=== PATIENT | male | born 1975 | race Caucasian/White ===

== ENCOUNTER 2020-02-02 18:00 | Outpatient (RCR) | payer OTHER, SELFPAY | END 2020-02-10 23:55 | disposition home or self-care (01) | LOC: HO.PAOS 18:00 | PROVIDERS: Visit Provider Counselor Mental Health | DX: F41.0 Panic disorder [episodic paroxysmal anxiety] (principal); F32.9 Major depressive disorder, single episode, unspecified | CPT/HCPCS: 90834 ==

== ENCOUNTER → 2022-05-22 14:19 | Outpatient (BNVA) | payer OTHER, SELFPAY | PROVIDERS: Visit Provider Psychiatry & Neurology Psychiatry | DX: Z13.89 Encounter for screening for other disorder (principal) ==

== ENCOUNTER → 2022-08-12 16:17 | Outpatient (BNVA) | payer OTHER, SELFPAY | PROVIDERS: Visit Provider Psychiatry & Neurology Psychiatry ==

== ENCOUNTER → 2022-10-28 17:29 | Outpatient (BNVA) | payer OTHER, SELFPAY | PROVIDERS: Visit Provider Psychiatry & Neurology Psychiatry ==

== ENCOUNTER → 2023-03-27 15:03 | Outpatient (BNVA) | payer OTHER, SELFPAY | PROVIDERS: Visit Provider Psychiatry & Neurology Psychiatry ==

== ENCOUNTER 2023-07-15 11:48 | Outpatient (AMB) | payer OTHER, SELFPAY ==
--- NOTE | 2023-07-15 11:17 | MHC.OFFVISPS ---
Intake Intake Visit Reasons: depression Allergies amoxicillin Allergy (Intermediate, Verified 01/21/22 10:45) Rash Medication List - Last Reconciled 07/15/23 by Jorden Grimes MD alprazolam 0.5 mg PO QID PRN buspirone 22.5 mg (1.5 x 15 mg) PO BID 30 days mirtazapine 45 mg PO BEDTIME 30 days sertraline 100 mg PO BID HPI- Psychiatric Chief Complaint: depression HPI Narrative: Pt seen in f/u with his mood has been more depressed more anxious and ruminating. Thinking about the of his father difficulties that he has had in the last 10 20 years and has had more ruminating limited sent in panic attacks and agoraphobia symptoms. His manages most household there appears to be some level guilt and rumination. Denies drinking denies abuse of alprazolam has been on mirtazapine and sertraline BuSpar 15 mg twice a day for augmentation he has not been being seen in psychotherapy and up until now has been seeing he has been doing quite well has been working for [employer] and this appears to be working out well Past Psychiatric History: Past history of significant depressive symptoms and agoraphobia symptoms in the past that were disabling Mental Status Exam Mental Status Exam Narrative: Mental Status Exam Narrative: Appearance: Casually dressed Behavior: Cooperative appropriate psychomotor: Within normal limits Speech: Normal volume and prosody Thought proccess logical ruminating Thought content: self esteem issuses issues related to his family and stress especially with his children were having difficulty also concerned regarding more anxiety Mood: Anxious and dysphoric Affect: Constricted SI:denies HI:denies VH/AH:none Delusions: None Insight/judgment: fair insight and judgment Memory/cog: Intact Telehealth Telehealth Location of provider rendering services: practice address Location of patient: address on file Patient Identification confirmed using: Name, : Yes Telehealth method: video Patient verbally consented to treatment: Yes Patient verbally consented to billing insurance company: Yes Minutes spent on Phone/Video with Pt.: 25 Assessment and Plan Assessment & Plan (1) Major depressive disorder, recurrent, moderate: Status: Acute Code(s): F33.1 - Major depressive disorder, recurrent, moderate (2) Panic disorder with agoraphobia: Status: Acute Code(s): F40.01 - Agoraphobia with panic disorder Plan Pt seen in f/u has been more anxious and depressed ruminating internally preoccupied clearly overwhelmed with multiple ongoing stressors including his own difficulties at times work family difficulties and dealing with his mother who has severe anxiety particularly after the of his father increase BuSpar to 22.5 mg twice a day strongly urged psychotherapy using his for support but not as a main psychotherapist no SI Medications: Changed From buspirone 15 mg (2 x 7.5 mg) PO BID 120 tabs 2RF To buspirone 22.5 mg (1.5 x 15 mg) PO BID 90 tabs 2RF 30 days Refilled sertraline 100 mg PO BID 60 tabs 3RF mirtazapine 45 mg PO BEDTIME 30 tabs 2RF 30 days Counseling and coordination of Care Diagnosis and Prognosis Counseling: Impact of diagnosis on life functions, Problematic behaviors secondary to diagnosis and Adequacy of current interventions Details: I spent [30] minutes reviewing the record, seeing the patient and documenting in the medical record. Counseling provided to the patient/caregiver as outlined below. Addressed patient/caregiver concerns regarding current medication regime including effective adherence. Addressed patient/caregiver concerns regarding diagnosis and prognosis including accuracy of diagnosis, prognosis over time, impact of diagnosis. Addressed patient/caregiver concerns regarding impact of recent stressors. 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 There is a family history of depression and anxiety Substance History: None noted Trauma History: na Coding Level of Care Code Tele Est Pt Level 4 (18986) Diagnoses Major depressive disorder, recurrent, moderate F33.1 Panic disorder with agoraphobia F40.01
== END 2023-07-15 16:03 | disposition home or self-care (01) ==
LOC: HO.HOP 11:48
PROVIDERS: Visit Provider Psychiatry & Neurology Psychiatry
DX: F33.1 Major depressive disorder, recurrent, moderate (principal); F40.01 Agoraphobia with panic disorder
CPT/HCPCS: 99214

== ENCOUNTER → 2023-07-15 11:48 | Outpatient (BNVA) | payer OTHER, SELFPAY | PROVIDERS: Visit Provider Psychiatry & Neurology Psychiatry ==

== ENCOUNTER 2023-09-02 14:30 | Outpatient (AMB) | payer BC, SELFPAY ==
--- NOTE | 2023-09-02 13:18 | MHC.OFFVISPS ---
Intake Intake Visit Reasons: Depression Allergies amoxicillin Allergy (Intermediate, Verified 01/21/22 10:45) Rash Medication List - Last Reconciled 09/02/23 by Jorden Grimes MD alprazolam 0.5 mg PO QID PRN buspirone 22.5 mg (1.5 x 15 mg) PO BID 30 days mirtazapine 45 mg PO BEDTIME 30 days sertraline 100 mg PO BID HPI- Psychiatric Chief Complaint: Depression HPI Narrative: Patient seen psychiatric follow-up with his . Patient seen telehealth needing he is somewhat demoralized and depressed understands he needs to work through multiple losses and stressors that he has had over the years and also issues related to the kids who are having problems in school which he would times blames on himself. Mood generally okay the patient his have been agreeable to seeking counseling mood generally stable on mirtazapine sertraline BuSpar he has challenging his agoraphobia type symptoms which include elevators Past Psychiatric History: Past history of significant depressive symptoms and agoraphobia symptoms in the past that were disabling Mental Status Exam Mental Status Exam Narrative: Mental Status Exam Narrative: Appearance: Casually dressed Behavior: Cooperative appropriate psychomotor: Within normal limits Speech: Normal volume and prosody Thought proccess logical ruminating Thought content: self esteem issuses depressive ruminations continue but future oriented Mood: Anxious and dysphoric Affect: Constricted SI:denies HI:denies VH/AH:none Delusions: None Insight/judgment: fair insight and judgment Memory/cog: Intact Telehealth Telehealth Telehealth Platform: Other (please specify) (doxy) Location of provider rendering services: practice address Location of patient: address on file Patient Identification confirmed using: Name, : Yes Telehealth method: video Patient verbally consented to treatment: Yes Patient verbally consented to billing insurance company: Yes Minutes spent on Phone/Video with Pt.: 24 Assessment and Plan Assessment & Plan (1) Major depressive disorder, recurrent, moderate: Status: Acute Code(s): F33.1 - Major depressive disorder, recurrent, moderate (2) Panic disorder with agoraphobia: Status: Acute Code(s): F40.01 - Agoraphobia with panic disorder Plan Continue mirtazapine BuSpar and sertraline patient would benefit from regular exercise healthy eating habits behavioral activation regular psychotherapy L methyl folate consideration BuSpar 22.5 b.i.d. mirtazapine 45 mg daily sertraline 200 mg daily Counseling and coordination of Care Pt. Self Management counseling: Breathing, Exercise, Behavior activation, Exposure and Organization skills and time management Medication management counseling: Effectiveness, Side effects and Dosing range Diagnosis and Prognosis Counseling: Adequacy of current interventions Details: I spent [29] minutes reviewing the record, seeing the patient and documenting in the medical record. Counseling provided to the patient/caregiver as outlined below. Addressed patient/caregiver concerns regarding current medication regime including effective adherence. Addressed patient/caregiver concerns regarding diagnosis and prognosis including accuracy of diagnosis, prognosis over time, impact of diagnosis. Addressed patient/caregiver concerns regarding impact of recent stressors. 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 There is a family history of depression and anxiety Substance History: None noted Trauma History: na Coding Level of Care Code Tele Est Pt Level 4 (04914) Diagnoses Major depressive disorder, recurrent, moderate F33.1 Panic disorder with agoraphobia F40.01
== END 2023-09-02 14:34 | disposition home or self-care (01) ==
LOC: HO.HOP 14:30
PROVIDERS: PCP Nurse Practitioner Primary Care; Visit Provider Psychiatry & Neurology Psychiatry
DX: F33.1 Major depressive disorder, recurrent, moderate (principal); F40.01 Agoraphobia with panic disorder
CPT/HCPCS: 99214

== ENCOUNTER → 2023-09-02 14:30 | Outpatient (BNVA) | payer BC, SELFPAY | PROVIDERS: PCP Nurse Practitioner Primary Care; Visit Provider Psychiatry & Neurology Psychiatry ==

== ENCOUNTER 2023-11-13 15:04 | Outpatient (AMB) | payer BC, SELFPAY ==
--- NOTE | 2023-11-13 16:55 | A.OFFPSYCH_ITS ---
Intake Intake Visit Reasons: Depression Allergies amoxicillin Allergy (Intermediate, Verified 01/21/22 10:45) Rash Medication List - Last Reconciled 11/13/23 by Jorden Grimes MD alprazolam 0.5 mg PO QID PRN buspirone 22.5 mg (1.5 x 15 mg) PO BID mirtazapine 45 mg PO BEDTIME 30 days sertraline 100 mg PO BID HPI- Psychiatric Chief Complaint: Depression HPI Narrative: Patient seen psychiatric follow-up patient's PHQ-9 in GED shown significant improvement. Patient's feeling significantly better now has a full-time job at the [employer] which has been quite reassuring to him. He has been trying to very gradually go down on alprazolam and we have discussed issues related to dependence withdrawal and benefit in trying to lower the doses of alprazolam over time which has been used regarding his panic disorder and agoraphobia in addition to sertraline mirtazapine and BuSpar. Past Psychiatric History: Past history of significant depressive symptoms and agoraphobia symptoms in the past that were disabling Mental Status Exam Mental Status Exam Narrative: Mental Status Exam Narrative: Appearance: Casually dressed Behavior: Cooperative appropriate psychomotor: Within normal limits Speech: Normal volume and prosody Thought proccess logical and goal-directed Thought content: Future oriented no self-harming thoughts Mood: Euthymic Affect: Appropriate to mood full affect SI:denies HI:denies VH/AH:none Delusions: None Insight/judgment: Good insight and judgment TRYING TO EAT BETTER AND GETTING REGULAR EXERCISE Memory/cog: Intact Assessment and Plan Assessment & Plan (1) Major depressive disorder, recurrent, moderate: Status: Acute Code(s): F33.1 - Major depressive disorder, recurrent, moderate (2) Panic disorder with agoraphobia: Status: Acute Code(s): F40.01 - Agoraphobia with panic disorder (3) Generalized anxiety disorder: Status: Acute Code(s): F41.1 - Generalized anxiety disorder Plan ENCOURAGE LOWERING ALPRAZOLAM BY HALF TABLET A MONTH. Discussed benefits of gradually lowering less tolerance may be more effective when needed p.r.n.. Patient has had longstanding panic and agoraphobia he will be seeing a therapist again in the past he did have behavioral management also recommended anxiety student success coach thought calm discussed relaxation breathing. Continue sertraline mirtazapine BuSpar. No evidence of elevated serotonin. Has not had labs were seen PCP for extended period of time will get some baseline labs Orders: Orders TSH reflex Free T4 11/13/23 F40.01 - Agoraphobia with panic disorder, Z82.49 - Family history of ischemic heart disease and other diseases of the circulatory system, F33.42 - Major depressive disorder, recurrent, in full remission Comprehensive Elaine. Panel Fast 11/13/23 F40.01 - Agoraphobia with panic disorder, Z82.49 - Family history of ischemic heart disease and other diseases of the circulatory system, F33.42 - Major depressive disorder, recurrent, in full remission Vitamin B12 and Folate 11/13/23 F40.01 - Agoraphobia with panic disorder, Z82.49 - Family history of ischemic heart disease and other diseases of the circulatory system, F33.42 - Major depressive disorder, recurrent, in full remission Complete Blood Count Auto Diff 11/13/23 F40.01 - Agoraphobia with panic disorder, Z82.49 - Family history of ischemic heart disease and other diseases of the circulatory system, F33.42 - Major depressive disorder, recurrent, in full remission Lipid Panel with Reflex 11/13/23 F40.01 - Agoraphobia with panic disorder, Z82.49 - Family history of ischemic heart disease and other diseases of the circulatory system, F33.42 - Major depressive disorder, recurrent, in full remission Counseling and coordination of Care Pt. Self Management counseling: Self-help workbook, Breathing, Mod caffeine/ETOH intake, Behavior activation, Cognitive restructuring and Exposure Medication management counseling: Effectiveness, Side effects and Dosing range Diagnosis and Prognosis Counseling: Problematic behaviors secondary to diagnosis and Adequacy of current interventions Details: I spent [30] minutes reviewing the record, seeing the patient and documenting in the medical record. Counseling provided to the patient/caregiver as outlined below. Addressed clementina ent/caregiver concerns regarding current medication regime including effective adherence. Addressed patient/caregiver concerns regarding diagnosis and prognosis including accuracy of diagnosis, prognosis over time, impact of diagnosis. Addressed patient/caregiver concerns regarding impact of recent stressors. 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 There is a family history of depression and anxiety Substance History: None noted Trauma History: na Coding Level of Care Code Est Pt Level 4 (44819) Diagnoses Major depressive disorder, recurrent, moderate F33.1 Panic disorder with agoraphobia F40.01 Generalized anxiety disorder F41.1
== END 2023-11-13 15:55 | disposition home or self-care (01) ==
LOC: HO.HOP 15:04
PROVIDERS: PCP Family Medicine; Visit Provider Psychiatry & Neurology Psychiatry
DX: F33.1 Major depressive disorder, recurrent, moderate (principal); F40.01 Agoraphobia with panic disorder; F41.1 Generalized anxiety disorder
CPT/HCPCS: 99214

== ENCOUNTER → 2023-11-13 15:04 | Outpatient (BNVA) | payer BC, SELFPAY | PROVIDERS: PCP Family Medicine; Visit Provider Psychiatry & Neurology Psychiatry ==

== ENCOUNTER 2023-12-26 06:53 | Outpatient (REF) | payer BC, SELFPAY ==
[2023-12-26 07:15] LABS: MANUAL DIFF FLAG NO
[2023-12-26 07:52] LABS: Basophils Absolute Auto 0.1 X10*3/uL (0.0-0.2); Basophils Percent Auto 0.6 % (0-2); Eosinophils Absolute Auto 0.2 X10*3/uL (0.0-0.4); Eosinophils Percent Auto 1.8 % (0-4); Hematocrit 47.1 % (42.0-52.0); Hemoglobin 16.7 g/dl (14.0-18.0); Imm Gran Abs Auto 0.06 X10*3/uL (0.00-0.03); Imm Gran Pct Auto 0.7 % (0.0-0.4); Lymphocytes Absolute Auto 2.3 X10*3/uL (1.2-4.9); Mean Corpuscular HGB Conc 35.5 g/dl (31.0-36.0); Mean Corpuscular Volume 84.7 fL (80.0-98.0); Mean Platelet Volume 9.6 fL (9.4-12.4); Monocytes Absolute Auto 0.7 X10*3/uL (0.1-1.2); Monocytes Percent Auto 7.6 % (2-11); Neutrophils Absolute Auto 5.6 x10*3/uL (2.0-8.3); Neutrophils Percent Auto 63.3 % (45-73); Platelet Count 306 X10*3/uL (160-400); Red Blood Count 5.56 X10*6/uL (4.60-5.80); Red Cell Distribution Width 13.4 % (11.0-16.0); White Blood Count 8.8 X10*3/uL (4.8-10.8)
[2023-12-26 08:30] LABS: Alanine Aminotransferase 51 U/L (0-40); Albumin Level 4.8 g/dL (3.5-5.0); Alkaline Phosphatase 71 U/L (39-117); Anion Gap 14 (12-20); Aspartate Amino Transferase 129 U/L (5-37); Bilirubin Total 0.8 mg/dL (0.0-1.0); Blood Urea Nitrogen 13 mg/dL (9-16); Calcium 9.4 mg/dL (8.4-10.2); Carbon Dioxide 25 mmol/L (22-29); Chloride 108 mmol/L (96-108); Cholesterol 147 mg/dL (<200); Estimated Glomerular Filt Rate > 60; Glucose Fasting 149 mg/dL (60-99); HDL Cholesterol 39 mg/dL (>40); LDL Cholesterol Calculated 38 mg/dL (<100); Potassium 4.1 mmol/L (3.3-5.1); Sodium 143 mmol/L (135-145); Total Protein 7.9 g/dL (6.5-8.0); Triglycerides 353 mg/dL (<150)
[2023-12-26 08:33] LABS: TSH reflex Free T4 2.01 uIU/mL (0.32-4.0)
[2023-12-26 08:51] LABS: Folate 9.5 ng/mL (> or = 4.0); Vitamin B12 483 pg/mL (200-900)
[2023-12-26 09:41] LABS: Reflex LDLD? No
--- NOTE | 2023-12-26 17:40 | PM.EVENT ---
Event Note Date of Service: 12/26/23 Event Note: DISCUSSED WITH PATIENT RESULTS OF RECENT LAB TESTS These include elevated triglycerides over the elevated liver function tests and elevated blood sugar in the 140s will get repeat labs in the morning copies to patient's primary care doctor strongly urged him to see primary care for further evaluation and treatment Hepatitis screen ordered hemoglobin A1c results to PCP Time Spent With Patient Time: Total time managing care of this patient today ____ minutes.
== END 2023-12-26 06:54 | disposition home or self-care (01) ==
LOC: HO.LAB 06:53
PROVIDERS: Visit Provider Psychiatry & Neurology Psychiatry
DX: F40.01 Agoraphobia with panic disorder (principal); Z82.49 Family history of ischemic heart disease and other diseases of the circulatory system; F33.42 Major depressive disorder, recurrent, in full remission
CPT/HCPCS: 36415; 80053; 80061; 82607; 82746; 84443; 85025

== ENCOUNTER 2023-12-27 06:59 | Outpatient (REF) | payer BC, SELFPAY ==
[2023-12-27 08:01] LABS: Estimated Average Glucose 88 mg/dL; Hemoglobin A1C 109.4579 umol/L; Hemoglobin A1c % 4.7 % (<6.0); Total Hemoglobin (HGBA1C) 3926.9527 umol/L
[2023-12-27 08:14] LABS: Alanine Aminotransferase 57 U/L (0-40); Albumin Level 4.6 g/dL (3.5-5.0); Alkaline Phosphatase 61 U/L (39-117); Aspartate Amino Transferase 35 U/L (5-37); Bilirubin Direct 0.3 mg/dL (0.0-0.5); Bilirubin Total 0.9 mg/dL (0.0-1.0); Cholesterol 140 mg/dL (<200); HDL Cholesterol 42 mg/dL (>40); LDL Cholesterol Calculated 82 mg/dL (<100); Total Protein 7.4 g/dL (6.5-8.0); Triglycerides 84 mg/dL (<150)
[2023-12-27 08:37] LABS: HBc Num1 0.09 S/CO (0.00-0.79); HBsAGNum1 0.35 S/CO (0.00-0.99); Hepatitis A Antibody IgM 0.22 Index (0-0.79); Hepatitis B Core Antibody Nonreactive (Nonreactive); Hepatitis B Surface Antigen Negative (Negative); ~HepC Num1 0.09 S/CO (0.00-0.79); ~Hepatitis A Antibody IgM Nonreactive (Nonreactive); ~Hepatitis B Surface Antibody NONREACTIVE (Nonreactive); ~Hepatitis C Antibody Nonreactive (Nonreactive)
== END 2023-12-27 07:00 | disposition home or self-care (01) ==
LOC: HO.LAB 06:59
PROVIDERS: Visit Provider Psychiatry & Neurology Psychiatry
DX: E78.1 Pure hyperglyceridemia (principal); R79.89 Other specified abnormal findings of blood chemistry
CPT/HCPCS: 36415; 80061; 80076; 83036; 86704; 86706; 86709; 86803; 87340

== ENCOUNTER 2024-04-09 10:54 | Outpatient (AMB) | payer BC, SELFPAY ==
--- NOTE | 2024-04-09 11:17 | MHC.OFFVISPS ---
Intake Intake Visit Reasons: depression Allergies amoxicillin Allergy (Intermediate, Verified 01/21/22 10:45) Rash Medication List - Last Reconciled 05/02/24 by Jorden Grimes MD alprazolam 0.5 mg PO QID PRN buspirone 22.5 mg (1.5 x 15 mg) PO BID losartan 25 mg PO DAILY 30 days mirtazapine 45 mg PO BEDTIME 30 days sertraline 100 mg PO BID HPI- Psychiatric Chief Complaint: depression HPI Narrative: The pt is feeling more settled had recent iron infusion mood has been stable good no panic doing well at home . Doing better as father and more present . Past Psychiatric History: Past history of significant depressive symptoms and agoraphobia symptoms in the past that were disabling Mental Status Exam Mental Status Exam Narrative: Mental Status Exam Narrative: Appearance: Casually dressed Behavior: Cooperative appropriate psychomotor: Within normal limits Speech: Normal volume and prosody Thought proccess logical and goal-directed Thought content: Future oriented no self-harming thoughts Mood: Euthymic Affect: Appropriate to mood full affect SI:denies HI:denies VH/AH:none Delusions: None Insight/judgment: Good insight and judgment Memory/cog: Intact Assessment and Plan Assessment & Plan (1) Panic disorder with agoraphobia: Status: Acute Code(s): F40.01 - Agoraphobia with panic disorder (2) Major depression, recurrent, full remission: Status: Acute Code(s): F33.42 - Major depressive disorder, recurrent, in full remission (3) Generalized anxiety disorder: Status: Acute Code(s): F41.1 - Generalized anxiety disorder Plan Patient's blood pressure mildly elevated 142/86 given that he was not going to see primary care for another few months we discussed starting losartan print out given discussion regarding hypertension lower salt diet regular exercise. Continue mirtazapine sertraline BuSpar Medications: New losartan 25 mg PO DAILY 30 tabs 2RF 30 days Counseling and coordination of Care Pt. Self Management counseling: Med illness tx adherence Details-Self Mgmt counseling: Issues related to living a healthier lifestyle Medication management counseling: Effectiveness, Side effects and Dosing range Details: I spent [] minutes reviewing the record, seeing the patient and documenting in the medical record. Counseling provided to the patient/caregiver as outlined below. Addressed patient/caregiver concerns regarding current medication regime including effective adherence. Addressed patient/caregiver concerns regarding diagnosis and prognosis including accuracy of diagnosis, prognosis over time, impact of diagnosis. Addressed patient/caregiver concerns regarding impact of recent stressors. 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 There is a family history of depression and anxiety Substance History: None noted Trauma History: na Coding Level of Care Code Est Pt Level 3 (89969) Therapy 30m w/E&M (58847) Diagnoses Panic disorder with agoraphobia F40.01 Major depression, recurrent, full remission F33.42 Generalized anxiety disorder F41.1
== END 2024-04-09 14:05 | disposition home or self-care (01) ==
LOC: HO.HOP 10:54
PROVIDERS: PCP Family Medicine; Visit Provider Psychiatry & Neurology Psychiatry
DX: F40.01 Agoraphobia with panic disorder (principal); F33.42 Major depressive disorder, recurrent, in full remission; F41.1 Generalized anxiety disorder
CPT/HCPCS: 90833; 99213

== ENCOUNTER 2024-11-08 10:17 | Outpatient (AMB) | payer BC, SELFPAY ==
--- NOTE | 2024-11-08 10:43 | MHC.OFFVISPS ---
Intake Intake Visit Reasons: depression Allergies amoxicillin Allergy (Intermediate, Verified 01/21/22 10:45) Rash Medication List - Last Reconciled 11/08/24 by Jorden Grimes MD alprazolam 0.5 mg PO QID PRN buspirone 22.5 mg (1.5 x 15 mg) PO BID losartan 25 mg PO DAILY 30 days mirtazapine 45 mg PO BEDTIME 30 days sertraline 100 mg PO BID HPI- Psychiatric Chief Complaint: depression HPI Narrative: Pt seen chart reviewed pt has been doing ok had difficulty with his sibs recently in relation to his mother and he made a choice to cut off from his sibs pt had some inc anxiety around this. Mood stable he and his doing well together he now has a pcp. Past Psychiatric History: Past history of significant depressive symptoms and agoraphobia symptoms in the past that were disabling Mental Status Exam Mental Status Exam Narrative: Mental Status Exam Narrative: Appearance: Casually dressed Behavior: Cooperative appropriate psychomotor: Within normal limits Speech: Normal volume and prosody Thought proccess logical and goal-directed Thought content: Future oriented no self-harming thoughts focused on issues in the family Mood: Euthymic Affect: Appropriate to mood full affect SI:denies HI:denies VH/AH:none Delusions: None Insight/judgment: Good insight and judgment Memory/cog: Intact Assessment and Plan Assessment & Plan (1) Panic disorder with agoraphobia: Status: Acute Code(s): F40.01 - Agoraphobia with panic disorder (2) Major depression, recurrent, full remission: Status: Acute Code(s): F33.42 - Major depressive disorder, recurrent, in full remission (3) Generalized anxiety disorder: Status: Acute Code(s): F41.1 - Generalized anxiety disorder Plan Patient generally stable has seen his PCP and will continue in treatment had neglected his health for an extended period of time. No regular panic have urge patient to taper down gradually on alprazolam over time has had significant panic disorder with avoidant symptoms no evidence of abuse on alprazolam Counseling and coordination of Care Details-Self Mgmt counseling: Dealing with different relational issues in the family has become estranged from his siblings in relationship to his relationship with his mother whom they feel he mistreated/neglected Medication management counseling: Effectiveness, Side effects and Dosing range Diagnosis and Prognosis Counseling: Impact of diagnosis on life functions and Adequacy of current interventions Details-Diagnosis/Prognosis counseling: Continue mirtazapine sertraline alprazolam BuSpar generally seems stable on this combination not overly sedated no evidence of abuse tolerance or diversion Details: I spent [38] minutes reviewing the record, seeing the patient and documenting in the medical record. Counseling provided to the patient/caregiver as outlined below. Addressed patient/caregiver concerns regarding current medication regime including effective adherence. Addressed patient/caregiver concerns regarding diagnosis and prognosis including accuracy of diagnosis, prognosis over time, impact of diagnosis. Addressed patient/caregiver concerns regarding impact of recent stressors. 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 There is a family history of depression and anxiety Substance History: None noted Trauma History: na Coding Level of Care Code Est Pt Level 3 (10541) Therapy 30m w/E&M (81506) Diagnoses Panic disorder with agoraphobia F40.01 Major depression, recurrent, full remission F33.42 Generalized anxiety disorder F41.1
--- OUTSIDE RECORDS SUMMARY | 2024-11-08 12:14 | XMS_ITS | Clinical Summary ---
Author Organization [facility] Address [address] [place] [id number] Phone Care Team Providers Care Advertising Sales Executive Name Role Phone Silvano Cabrera MD Primary Care Provider [phone] Silvano Cabrera MD Unavailable Allergies Active Allergy Reactions Criticality Noted Date Comments Amoxicillin Hives Low 06/01/2024 Medications ALPRAZolam (XANAX) 0.5 MG tablet Take 0.5 mg by mouth 3 (three) times a day. Active busPIRone (BUSPAR) 15 MG tablet Take 22 mg by mouth 2 (two) times a day. 1.5 tabs (22mg) 5 Active mirtazapine (REMERON) 45 MG tablet Take 45 mg by mouth nightly at bedtime. at bedtime. 5 Active sertraline (ZOLOFT) 100 MG tablet Take 100 mg by mouth daily. Active betamethasone valerate 0.1 % ointmentIndicatio ns:Skin lesion of hand Apply topically 2 (two) times a day. 45 g 2 5 Active losartan (COZAAR) 25 MG tabletIndications :Essential hypertension Take 1 tablet (25 mg total) by mouth every morning. 90 tablet 3 Active Active Problems Problem Noted Date Diagnosed Date Obesity, Class II, BMI 35-39.9 06/01/2024 Class 2 severe obesity with body mass index (BMI) of 35 to 39.9 with serious comorbidity 06/01/2024 Essential hypertension 06/01/2024 Seasonal allergies 06/01/2024 Generalized anxiety disorder with panic attacks 06/01/2024 Immunizations Immunization Administration Dates Next Due COVID-19, Unspecified Formulation 04/09/2020, Influenza, Unspecified Formulation 02/28,11/30/2020,12/01/2019,11/17/19 10 Social History Tobacco Use Types Packs/Day Years Used Date Smoking Tobacco: Never Smokeless Tobacco: Current Snuff Tobacco Cessation:Ready to Q uit: Not Asked Alcohol Use Standard Drinks/Week Comments Not Currently 0 (1 standard drink = 0.6 oz pur e alcohol) Child or Family Care Answer Date Record ed Do you have problems with on e of the following making it difficult for you to work, study, or receive health care? No 05/25/2024 Education Answer Date Recorded Are you interested in help w ith more adult education (for example, completing high school, GED, job training, learning the [place] language, technical skills, or developing parenting skills)? No 05/25/2024 Are you concerned about learning? Not on file 05/25/2024 No 05/25/2024 Yes 05/25/2024 Food Answer Date Recorded Within the past 6 months we worried whether our food would run out before we got money to buy more. Never True 05/25/2024 Within the past 6 months the food we bought just didn't last and we didn't have enough money to get more. Never True Residential Stability Answer Date Recor ded What is your housing situation today? I have huseyin sing 05/25/2024 How many times have you move d in the past 12 months? Zero (I did not move) 05/25/2024 Paying for Meds Answer Date Recorded Do you have trouble paying for medicines? No 05/25/2024 Paying Utility Bills Answer Date Record ed Do you have trouble paying your heating or elect ricity bill? No 05/25/2024 Transportation Answer Date Recorded Has the lack of transportati on kept you from medical appointments or from getting medications? No 05/25/2024 Digital Access Answer Date Recorded No 05/25/2024 Yes 05/25/2024 Do you have reliable internet access at home? Ye s 05/25/2024 Do you have a device (e.g., phone, tablet, computer) with a working camera? Yes 05/25/2024 Intimate Partner Violence Answer Date R ecorded Denied Basic Needs Not on file 05/25/2024 In the past 12 months have y ou been in a relationship with a person who hurts, threatens, or tries to control you? No 05/25/2024 Worried food would run out Not on file 05/25 In the past 12 months have y ou been in a relationship with a person who hurts, threatens, or tries to control you? No 05/25/2024 Sex and Gender Information Value Date Recorded Sex Assigned at Not on file Legal Sex Male 5:55 PM EST Gender Identity Not on file Sexual Orientation Not on file Last Filed Vital Signs Vital Sign Reading Time Taken Comments Blood Pressure 122/76 06/01/2024 1:28 PM EDT Pulse 85 06/01/2024 1:28 PM EDT Temperature 37.3 C (99.2 F) 06/01/2024 1:28 PM EDT Respiratory Rate - - Oxygen Saturation 98% 06/01/2024 1:28 PM EDT Inhaled Oxygen Concentration - - Weight 115.9 kg (255 lb 9.6 oz) 06/01/2024 1:28 PM EDT Height 175.5 cm (5' 9.09 ) 06/01/2024 1:28 PM ED T Body Mass Index 37.64 06/01/2024 1:28 PM EDT Plan of Treatment Upcoming Encounters Date Type Department Care Team (Late st Contact Info) Description 12/07/2024 9:00 AM EDT Office Visit [facility] [address] [place] [address] Silvano Cabrera MD [address] [place] [address], [address] [place] [address] [email or web address] Health Maintenance Due Date Last Done Comments Adult Td,Tdap Booster 1977 CREATININE LEVEL 1977 LIPID PANEL 1977 POTASSIUM LEVEL 1977 HEPATITIS C SCREENING 09/10/1995 HIV ONE-TIME SCREENING (18-6 5 YEARS) 09/10/1995 SMOKING STATUS SCREENING (On ce After 26 Yrs) 09/10/2003 SCREENING FOR DIABETES 2012 COLOGUARD 2022 COLONOSCOPY 2022 COLORECTAL CANCER SCREENING 2022 FIT TEST 2022 FOBT 2022 SIGMOIDOSCOPY 2022 VIRTUAL COLONOSCOPY 2022 COVID-19 VACCINE (3 - 2023-2 5 season) 2023 04/09/2020, 03/19/2020 BLOOD PRESSURE 12/01/2024 06/01/2024 DEPRESSION SCREENING 05/25/2025 05/25/2024 HEPATITIS A VACCINES Aged Out No long er eligible based on patient's age to complete this topic HIB VACCINES Aged Out No longer eligi ble based on patient's age to complete this topic MENINGOCOCCAL VACCINES (ACWY) Aged Out No longer eligible based on patient's age to complete this topic MENINGOCOCCAL VACCINES (B) Aged Out N o longer eligible based on patient's age to complete this topic PNEUMOCOCCAL VACCINES (0-49 years) Aged Out No longer eligible b ased on patient's age to complete this topic Medical Devices Not on file Insurance #1 [place] [id number] [facility] [employer] PARTIAL Member Subscriber Plan / Payer (Ef fective 2023-Present) Name:Juan Levin Relation to Subscriber:Self Name:Juan Levin Payer ID:Not on file Group ID:Not on file Type:Medicaid Address: [address] Member Subscriber Plan / Payer (Ef fective 2023-Present) Name:Juan Levin Relation to Subscriber:Self Name:Juan Levin Payer ID:Not on file Group ID:Not on file Type:Medicaid Address: [address] Member Subscriber Plan / Payer (Ef fective 2023-Present) Name:Juan Levin Relation to Subscriber:Self Name:Rock Juan Payer ID:Not on file Group ID:Not on file Type:Medicaid Address: [place] [id number] [facility] PARTIAL Member Subscriber Plan / Payer (Ef fective 2023-Present) Name:Juan Levin Relation to Subscriber:Self Name:Juan Levin Payer ID:Not on file Group ID:Not on file Type:Medicaid Address: [place] [id number] [facility] [address] [employer] Care Teams Advertising Sales Executive Relationship Specialty Start Date End Date Silvano Cabrera MD [address] [facility], [facility] [address] [place] [address] [email or web address] PCP - General Family Medicine 06/01/24 Silvano Cabrera MD [address] [facility], [facility] [address] [place] [id number] [email or web address] Insurance Assigned Provider 07/10/24 Additional Source Comments The information contained in this document represents components of the legal health record. It is not the complete legal health record.[facility]
--- OUTSIDE RECORDS SUMMARY | 2024-11-08 12:14 | XMS_ITS | Patient Health Record ---
Author Organization [facility] Address [address] [place] [id number] Care Team Providers Care Assembler Erector Name Role Phone Jose Ramon Amaro Jr [phone] Reason For Referral No Information Plan Of Treatment No Information
== END 2024-11-08 11:11 | disposition home or self-care (01) ==
LOC: HO.HOP 10:17
PROVIDERS: PCP Family Medicine; Visit Provider Psychiatry & Neurology Psychiatry
DX: F40.01 Agoraphobia with panic disorder (principal); F33.42 Major depressive disorder, recurrent, in full remission; F41.1 Generalized anxiety disorder
CPT/HCPCS: 90833; 99213